=== PATIENT | male | born 1960 | race Caucasian/White ===

== ENCOUNTER 2019-02-13 23:56 | Emergency (ER) | payer OTHER ==
[2019-02-14] MEDS ORDERED: LORAZEPAM 2 MG INJ (00:11)
[2019-02-14] MEDS: LORAZEPAM 2 MG INJ IV ×3 (00:18→11:01)
[2019-02-14 00:37] LABS: ADD UMIC NO; UR ASCORBIC ACID NEGATIVE (NEGATIVE); UR BILIRUBIN (Dip) NEGATIVE (NEGATIVE); UR BLOOD (Dip) NEGATIVE (NEGATIVE); UR CLARITY CLEAR (CLEAR); UR COLOR YELLOW (YELLOW); UR GLUCOSE (Dip) NEGATIVE (NEGATIVE); UR KETONES (Dip) NEGATIVE (NEGATIVE); UR LEUKOCYTE ESTERASE (Dip) NEGATIVE Leu/ul (NEGATIVE); UR NITRITE (Dip) NEGATIVE (NEGATIVE); UR SPECIFIC GRAVITY (Dip) 1.017 (1.003-1.030); UR TOTAL PROTEIN (Dip) NEGATIVE (NEGATIVE); UR UROBILINOGEN (Dip) 1+ mg/dL (NEGATIVE)
[2019-02-14 01:07] LABS: AMPHETAMINE/METHAMPHETAMINE Negative (NEGATIVE); BARBITURATES Negative (NEGATIVE); BENZODIAZEPINES Negative (NEGATIVE); CANNABINOIDS Negative (NEGATIVE); COCAINE Negative (NEGATIVE); OPIATES Positive (NEGATIVE)
[2019-02-14 01:38] LABS: ADD MAN DIFF? NO
[2019-02-14 01:40] LABS: BASOPHILS % 0.2 % (0.0-2.0); EOSINOPHILS # 0.1 10^3/ul (0.0-0.5); EOSINOPHILS % 1.8 % (0.0-7.0); HEMATOCRIT 40.7 % (42.0-52.0); HEMOGLOBIN 13.2 g/dl (14.0-18.0); LYMPHOCYTES # 1.3 10^3/ul (0.8-2.9); LYMPHOCYTES % 24.4 % (15.0-51.0); MEAN CORPUSCULAR HEMOGLOBIN 30.3 pg (29.0-33.0); MEAN CORPUSCULAR HGB CONC 32.4 g/dl (32.0-37.0); MEAN CORPUSCULAR VOLUME 93.3 fl (82.0-101.0); MEAN PLATELET VOLUME 9.2 fl (7.4-10.4); MONOCYTE # 0.7 10^3/ul (0.3-0.9); MONOCYTES % 13.5 % (0.0-11.0); NEUTROPHIL # 3.1 10^3/ul (1.6-7.5); NEUTROPHILS % 59.5 % (39.0-77.0); PLATELET COUNT 213 10^3/UL (140-415); RED BLOOD COUNT 4.36 10^6/ul (4.70-6.10); RED CELL DISTRIBUTION WIDTH 13.5 % (11.5-14.5)
[2019-02-14 01:40] LABS: WHITE BLOOD COUNT 5.1 10^3/ul (4.8-10.8)
[2019-02-14 01:58] LABS: ALANINE AMINOTRANSFERASE 32 IU/L (13-69); ALBUMIN 3.7 g/dl (3.3-4.9); ALBUMIN/GLOBULIN RATIO 1.23; ALKALINE PHOSPHATASE 53 IU/L (42-121); ANION GAP 4 (5-13); ASPARTATE AMINO TRANSFERASE 15 IU/L (15-46); BILIRUBIN,INDIRECT 0.3 mg/dl (0-1.1); BILIRUBIN,TOTAL 0.3 mg/dl (0.2-1.3); BLOOD UREA NITROGEN 15 mg/dl (7-20); CALCIUM 8.7 mg/dl (8.4-10.2); CARBON DIOXIDE 32 mmol/L (21-31); CHLORIDE 109 mmol/L (97-110); CREATININE 0.67 mg/dl (0.61-1.24); Estimated GFR > 60 mL/min (>60); GLUCOSE 130 mg/dl (70-220); POTASSIUM 4.8 mmol/L (3.5-5.1); SODIUM 145 mmol/L (135-144); TOTAL PROTEIN 6.7 g/dl (6.1-8.1)
[2019-02-14 02:05] LABS: ACETAMINOPHEN < 10.0 ug/ml (10.0-30.0); ETHANOL < 10.0 mg/dl (0-0); SALICYLATE < 1.0 mg/dl (5.0-30.0)
[2019-02-14 02:09] LABS: TROPONIN-I < 0.012 ng/ml (0.000-0.120)
[2019-02-14 04:00] LABS: LACTIC ACID 1.2 mmol/L (0.5-2.0)
[2019-02-14] MEDS: HALOPERIDOL 5 MG INJ IM ×3 (07:01→11:01)
[2019-02-14] MEDS: DIAZEPAM 5 MG/ML SYG IV (12:52)
== END 2019-02-14 17:55 | disposition home or self-care (01) ==
LOC: E/R 23:56
DX: R45.1 Restlessness and agitation (principal); R41.82 Altered mental status, unspecified; R40.2142 Coma scale, eyes open, spontaneous, at arrival to emergency department; R40.2242 Coma scale, best verbal response, confused conversation, at arrival to emergency department; R40.2362 Coma scale, best motor response, obeys commands, at arrival to emergency department; Z79.82 Long term (current) use of aspirin
CPT/HCPCS: 36415; 71045; 80053; 80307; 81003; 83605; 84484; 85025; 93005; 96372; 96374; 96375; 96376; 99285-25